=== PATIENT | male | born 1965 | race African-American/Black ===

== ENCOUNTER 2022-04-15 20:01 | Emergency (ER) | END 2022-04-16 00:30 | disposition left against medical advice (07) | LOC: MW.ED 20:01 | DX: Z53.21 Procedure and treatment not carried out due to patient leaving prior to being seen by health care provider (principal) ==

== ENCOUNTER 2022-04-16 13:15 | Emergency (ER) ==
[2022-04-16] MEDS ORDERED: Iopamidol 755 Mg/ML 100 ML Bottle IV ONE (13:16)
[2022-04-16] MEDS ORDERED: Sodium Chloride 0.9% 1,000 ML IV ONE (15:25)
[2022-04-16] MEDS ORDERED: Aspirin 81 MG Tab.Chew PO ONE (15:25)
[2022-04-16] MEDS ORDERED: Hydrochlorothiazide 25 MG Tab PO ONE (19:00)
== END 2022-04-16 19:20 | disposition home or self-care (01) ==
LOC: MW.ED 13:15
DX: I10 Essential (primary) hypertension (principal); R77.8 Other specified abnormalities of plasma proteins; Z79.899 Other long term (current) drug therapy
CPT/HCPCS: 71275; 74174; 96360; 99284; A9270; J7030; Q9967